=== PATIENT | female | born 1935 | race Hispanic/Latino ===

== ENCOUNTER → 2023-05-25 | Outpatient (CLI) | payer OTHER, MEDICARE | END | disposition home or self-care (01) | LOC: SHCH 08:31 | PROVIDERS: ATTEND Internal Medicine Cardiovascular Disease | DX: I82.533 Chronic embolism and thrombosis of popliteal vein, bilateral (principal); I82.513 Chronic embolism and thrombosis of femoral vein, bilateral; I87.2 Venous insufficiency (chronic) (peripheral) | CPT/HCPCS: 93970 ==